=== PATIENT | male | born 1990 | race Caucasian/White ===

== ENCOUNTER → 2017-10-27 | Outpatient (REF) | payer BC ==
[2017-10-27 23:01] LABS: INFLUENZA A AMPLIFICATION NEGATIVE (NEGATIVE); INFLUENZA B AMPLIFICATION NEGATIVE (NEGATIVE); RSV AMPLIFICATION NEGATIVE (NEGATIVE)
== END ==
LOC: M LAB REF 09:42
DX: J11.1 Influenza due to unidentified influenza virus with other respiratory manifestations (principal)
CPT/HCPCS: 87631

== ENCOUNTER → 2018-11-21 | Outpatient (REF) | payer BC | LOC: M SFHCLERA 16:37 | PROVIDERS: ATTEND Physician Assistant | DX: J02.9 Acute pharyngitis, unspecified (principal) ==

== ENCOUNTER 2021-01-06 08:44 | Emergency (ER) | payer BC, OTHER, SELFPAY ==
[~2021-01-06] VITALS: Ht 175.3 cm; Wt 160.2 kg
[2021-01-06 09:29] LABS: BASO # 0.1 10^3/uL (0.0-0.2); BASO % 1.2 % (0.0-1.0); EOS # 0.3 10^3/uL (0.0-0.5); EOS % 3.3 % (0.0-3.0); HEMOGLOBIN 13.8 g/dl (13.5-17.5); LYMPH % 22.1 % (24.0-44.0); MEAN CORPUSCULAR HEMOGLOBIN 27.4 pg (27.0-33.0); MEAN CORPUSCULAR HGB CONC 32.9 g/dl (32.0-36.5); MEAN CORPUSCULAR VOLUME 83.3 fl (80.0-96.0); MONO % 10.8 % (2.0-8.0); NEUTROPHILS # 5.7 10^3/uL (1.5-8.5); NEUTROPHILS % 62.1 % (36.0-66.0); PLATELET COUNT, AUTOMATED 368 10^3/uL (150-450); RED BLOOD COUNT 5.04 10^6/uL (4.30-6.10); WHITE BLOOD COUNT 9.2 10^3/uL (4.0-10.0)
[2021-01-06 09:40] LABS: INR 0.92; PARTIAL THROMBOPLASTIN TIME 27.1 SECONDS (24.2-38.5); PROTHROMBIN TIME 12.6 SECONDS (12.5-14.3)
--- NOTE | 2021-01-06 09:42 | REP ---
INDICATION: CHEST PAIN. COMPARISON: 05/20/2011. TECHNIQUE: SINGLE PORTABLE AP VIEW OF THE CHEST WAS PERFORMED. FINDINGS: THERE IS NO ACUTE INFILTRATE OR PULMONARY EDEMA. LUNGS ARE CLEAR. HEART IS NOT SIGNIFICANTLY ENLARGED. MEDIASTINAL SILHOUETTE IS UNREMARKABLE. THE VISUALIZED OSSEOUS STRUCTURES ARE INTACT. IMPRESSION: NO ACUTE PULMONARY DISEASE. <Electronically signed by Wil Carter > 01/06/21 [id number]
[2021-01-06 10:05] LABS: ALBUMIN 3.6 GM/DL (3.2-5.2); ALT/SGPT 200 U/L (12-78); BILIRUBIN,DIRECT 0.2 MG/DL (0.0-0.2); BILIRUBIN,TOTAL 0.5 MG/DL (0.2-1.0); BLOOD UREA NITROGEN 17 MG/DL (7-18); CARBON DIOXIDE LEVEL 28 MEQ/L (21-32); CHLORIDE LEVEL 103 MEQ/L (98-107); CK-MB VALUE MASS 1.1 NG/ML (<3.6); CPK CREATINE PHOSPHOKINASE 172 U/L (39-308); GLOMERULAR FILTRATION RATE > 60.0 (>60); GLUCOSE, FASTING 96 MG/DL (70-100); LIPASE 196 U/L (73-393); MB/CK RELATIVE INDEX 0.64 (< OR =4); POTASSIUM SERUM 3.7 MEQ/L (3.5-5.1); SODIUM LEVEL 138 MEQ/L (136-145); TOTAL PROTEIN 7.3 GM/DL (6.4-8.2); TROPONIN I 0.09 NG/ML (< 0.10)
--- NOTE | 2021-01-06 10:57 | ECGEPIP ---
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
[2021-01-06] MEDS ORDERED: KETOROLAC 30 MG/ML 1ML VIAL IV ONE (11:00)
[2021-01-06] MEDS ORDERED: ISOVUE-370 76% 100ML VIAL As Ordered ONE (11:24)
[2021-01-06 12:18] LABS: CK-MB VALUE MASS 1.2 NG/ML (<3.6); MB/CK RELATIVE INDEX 0.69 (< OR =4); TROPONIN I 0.08 NG/ML (< 0.10)
--- NOTE | 2021-01-06 12:21 | REP ---
INDICATION: chest pain, elevated liver function tests. COMPARISON: None TECHNIQUE: 100 cc Isovue 370. FINDINGS: There is a common bile duct stent in place. There is slight intrahepatic ductal dilatation in the left lobe of the liver. The patient is status post cholecystectomy. There are no enhancing hepatic lesions. The spleen, pancreas, adrenal glands, and kidneys are within normal limits. The abdominal aorta and para-aortic regions are within normal limits. There is no free fluid or free air. There is no mass or adenopathy. The bowel loops and the mesenteries are within normal limits. The imaged osseous structures are within normal limits. IMPRESSION: There are some findings as described above. There is no evidence of acute disease. <Electronically signed by Kulwinder Beltre > 01/06/21 [id number]
--- NOTE | 2021-01-06 12:26 | REP ---
INDICATION: chest pain, elevated liver function tests. COMPARISON: None TECHNIQUE: CT angiogram, 100 cc Isovue 370. FINDINGS: There is excellent visualization of the pulmonary arterial vasculature. There are no focal filling defects present that would be considered consistent with acute pulmonary emboli. There are no pleural or pericardial effusions. There is no mediastinal or hilar adenopathy. Although not optimally visualized, the thoracic aorta is within normal limits. The imaged osseous structures are within normal limits. Evaluation of the lung pate shows no abnormal nodules, masses, or opacities. IMPRESSION: No acute disease. <Electronically signed by Kulwinder Beltre > 01/06/21 1994
[2021-01-06] MEDS ORDERED: KETO10TAB PO (12:54)
[2021-01-06 13:07] VITALS: BP 158/94
--- NOTE | 2021-01-07 02:39 | ECGEPIP ---
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
== END 2021-01-06 13:35 | disposition home or self-care (01) ==
LOC: M ED 08:44
DX: R07.89 Other chest pain (principal); R11.0 Nausea; Z87.891 Personal history of nicotine dependence
CPT/HCPCS: 71045; 71275; 74177; 80048; 80076; 82550; 82553; 83690; 84439; 84443; 84484; 85025; 85379; 85610; 85730; 93005; 93041; 96374; 99284; J1885; Q9967

== ENCOUNTER 2022-03-18 10:19 | Emergency (ER) | payer BC, SELFPAY ==
[~2022-03-18] VITALS: Ht 175.3 cm; Wt 187.6 kg
[~2022-03-18 10:19] MED LIST: KETO10TAB PO
[2022-03-18] MEDS ORDERED: CETI10CH PO (10:32)
[2022-03-18] MEDS ORDERED: HYDR-3490 PO (10:32)
[2022-03-18] MEDS ORDERED: LEXA1TAB PO (10:32)
[2022-03-18 11:44] LABS: BASO # 0.2 10^3/uL (0.0-0.2); BASO % 1.2 % (0.0-1.0); EOS # 0.8 10^3/uL (0.0-0.5); EOS % 6.3 % (0.0-3.0); HEMATOCRIT 40.6 % (42.0-52.0); HEMOGLOBIN 13.2 g/dl (13.5-17.5); LYMPH # 2.8 10^3/uL (1.5-5.0); LYMPH % 22.8 % (24.0-44.0); MEAN CORPUSCULAR HGB CONC 32.5 g/dl (32.0-36.5); MONO # 0.9 10^3/uL (0.0-0.8); MONO % 7.7 % (2.0-8.0); NEUTROPHILS # 7.4 10^3/uL (1.5-8.5); NEUTROPHILS % 61.2 % (36.0-66.0); PLATELET COUNT, AUTOMATED 389 10^3/uL (150-450); RED BLOOD COUNT 4.89 10^6/uL (4.30-6.10); WHITE BLOOD COUNT 12.1 10^3/uL (4.0-10.0)
[2022-03-18 11:59] LABS: INR 0.9; PROTHROMBIN TIME 12.6 SECONDS (12.7-14.5)
[2022-03-18 12:00] LABS: PARTIAL THROMBOPLASTIN TIME 30.3 SECONDS (25.9-37.0)
[2022-03-18] MEDS ORDERED: NS 1,000 ML IV ONE (12:00)
[2022-03-18 12:13] LABS: CK-MB VALUE MASS 1.2 NG/ML (<3.6); MB/CK RELATIVE INDEX 0.71 (< OR =4)
[2022-03-18 12:19] LABS: ALBUMIN 3.3 GM/DL (3.2-5.2); ALT/SGPT 156 U/L (12-78); BILIRUBIN,DIRECT 0.2 MG/DL (0.0-0.2); BILIRUBIN,TOTAL 0.4 MG/DL (0.2-1.0); BLOOD UREA NITROGEN 12 MG/DL (7-18); CALCIUM LEVEL 8.8 MG/DL (8.5-10.1); CARBON DIOXIDE LEVEL 31 MEQ/L (21-32); CHLORIDE LEVEL 102 MEQ/L (98-107); CREATININE FOR GFR 0.96 MG/DL (0.70-1.30); GLOMERULAR FILTRATION RATE > 60.0 (>60); GLUCOSE, FASTING 88 MG/DL (70-100); NT-PRO BNP 221 PG/ML (<125); POTASSIUM SERUM 3.8 MEQ/L (3.5-5.1); SODIUM LEVEL 138 MEQ/L (136-145); TOTAL PROTEIN 7.4 GM/DL (6.4-8.2)
[2022-03-18] MEDS ORDERED: ASPIRIN 81 MG CHEW TABLET PO ONE (12:25)
[2022-03-18] MEDS: NS 1,000 ML IV SCH ×3 (12:25→22:20)
[2022-03-18] MEDS ORDERED: ISOVUE-370 76% 100ML VIAL As Ordered ONE ×2 (12:46→13:26)
[2022-03-18] MEDS ORDERED: HEPARIN SOD (PORCINE) 5000UNITS/ML 1ML VIAL/SYRINGE IV ONE (14:25)
[2022-03-18] MEDS ORDERED: NITROGLYCERIN 2% OINT 1 GM *U/D* PKT TOP ONE (14:25)
[2022-03-18] MEDS ORDERED: HEPARIN DRIP 25,000 UNITS in IV 1 EA IV SCH ×2 (14:25→18:05)
[2022-03-18 15:42] LABS: AMPHETAMINES LEVEL URINE NEGATIVE (NEGATIVE); BARBITURATES URINE NEGATIVE (NEGATIVE); BENZODIAZEPINES URINE NEGATIVE (NEGATIVE); CANNABINOIDS URINE NEGATIVE (NEGATIVE); COCAINE METABOLITE URINE NEGATIVE (NEGATIVE); METHADONE URINE NEGATIVE (NEGATIVE); OPIATES URINE NEGATIVE (NEGATIVE); PHENCYCLIDINE URINE NEGATIVE (NEGATIVE)
[2022-03-18] MEDS: HEPARIN SOD (PORCINE) 5000UNITS/ML 1ML VIAL/SYRINGE IV PRN (21:59)
[2022-03-18] MEDS ORDERED: ONDANSETRON 4MG/2ML VIAL IV ONE (23:05)
[2022-03-18] MEDS ORDERED: ACETAMINOPHEN TAB 650MG DOSE (2X325MG) PO ONE (23:05)
[2022-03-19] MEDS ORDERED: NITROGLYCERIN 2% OINT 1 GM *U/D* PKT TOP ONE (00:50)
[2022-03-19 00:58] VITALS: BP 200/110
[2022-03-19] MEDS ORDERED: ACETAMINOPHEN TAB 650MG DOSE (2X325MG) PO ONE (03:30)
[2022-03-19] MEDS: HEPARIN SOD (PORCINE) 5000UNITS/ML 1ML VIAL/SYRINGE IV PRN (04:53)
[2022-03-19 06:18] VITALS: BP 180/100
== END 2022-03-19 06:23 | disposition short-term general hospital (02) ==
LOC: M ED 10:19
DX: I21.4 Non-ST elevation (NSTEMI) myocardial infarction (principal); R94.31 Abnormal electrocardiogram [ECG] [EKG]; I10 Essential (primary) hypertension; Z79.899 Other long term (current) drug therapy
CPT/HCPCS: 71045; 71275; 80048; 80076; 80307; 82550; 82553; 83880; 84443; 84484; 85025; 85610; 85730; 87486; 87581; 87633; 87798; 93005; 93041; 94760; 96360; 96361; 99285; J1644; Q9967

== ENCOUNTER → 2022-06-29 | Outpatient (CLI) | payer BC ==
[~2022-06-29] MED LIST changes: +CARV12.5 PO; +CETI10CH PO; +HYDR-3490 PO; +LEXA1TAB PO; +LISI20TA33 PO; +SPIR-10 PO; +VITMTA PO
== END ==
LOC: M LABSMTC 11:29
PROVIDERS: ATTEND Anesthesiology
DX: Z01.812 Encounter for preprocedural laboratory examination (principal); Z20.822 Contact with and (suspected) exposure to COVID-19

== ENCOUNTER 2022-07-03 13:13 | Day surgery (SDC) | payer BC ==
[~2022-07-03] VITALS: Ht 175.3 cm; Wt 169.4 kg
[~2022-07-03 13:13] MED LIST changes: +NS 1,000 ML IV ONE
[2022-07-03 13:40] VITALS: BP 173/103
[2022-07-03] MEDS ORDERED: LR 1,000 ML IV SCH (13:50)
== END 2022-07-03 13:46 | disposition home or self-care (01) ==
LOC: M SDC 13:13
PROVIDERS: ATTEND Internal Medicine Gastroenterology
DX: Z46.59 Encounter for fitting and adjustment of other gastrointestinal appliance and device (principal); Z53.8 Procedure and treatment not carried out for other reasons

== ENCOUNTER → 2022-07-26 | Outpatient (CLI) | payer BC ==
[~2022-07-26] MED LIST changes: -NS 1,000 ML IV ONE
== END ==
LOC: M LABSMTC 10:14
PROVIDERS: ATTEND Anesthesiology
DX: Z20.828 Contact with and (suspected) exposure to other viral communicable diseases (principal); Z11.59 Encounter for screening for other viral diseases

== ENCOUNTER 2022-08-14 10:51 | Day surgery (SDC) | payer BC ==
[~2022-08-14] VITALS: Ht 177.8 cm; Wt 172.7 kg
[~2022-08-14 10:51] MED LIST changes: +NS 1,000 ML IV ONE
[2022-08-14] MEDS ORDERED: fentaNYL 100 MCG/2 ML INJECTION As Ordered ONE (12:53)
[2022-08-14] MEDS ORDERED: MIDAZOLAM INJ 2MG/2ML VIAL (J2250 PER 1MG) As Ordered ONE ×2 (12:53→14:49)
[2022-08-14] MEDS ORDERED: propofoL 200 MG/20 ML VIAL As Ordered ONE ×3 (13:16→15:53)
[2022-08-14] MEDS ORDERED: LIDOCAINE 2% 100MG/5ML SDV (FOR ANES.) As Ordered ONE (13:17)
[2022-08-14] MEDS ORDERED: ROCURONIUM BROMIDE 50 MG/5 ML VIAL As Ordered ONE (13:18)
[2022-08-14] MEDS ORDERED: ISOVUE-300 61% 50ML VIAL As Ordered ONE (13:43)
[2022-08-14] MEDS ORDERED: SUGAMMADEX SODIUM 500 MG/5 ML VIAL (BRIDION) As Ordered ONE (15:33)
[2022-08-14] MEDS ORDERED: ONDANSETRON 4MG 2ML VIAL IV PRN (15:45)
[2022-08-14] MEDS ORDERED: HYDROMORPHONE HCL 0.5 MG/ 0.5 ML SYRINGE (J1170 PER 1) IV PRN (15:45)
[2022-08-14] MEDS ORDERED: oxyCODONE 5MG TAB PO PRN (15:45)
[2022-08-14] MEDS ORDERED: fentaNYL 100 MCG/2 ML INJECTION IV PRN (15:45)
[2022-08-14] MEDS ORDERED: LR 1,000 ML IV SCH (15:45)
[2022-08-14] MEDS: LABETALOL 100MG/20ML VIAL IV PRN ×5 (16:10→16:30)
[2022-08-14] MEDS: hydrALAZINE 20MG/ML 1ML VIAL (J0360 PER 20MG) IV PRN ×4 (16:41→17:00)
[2022-08-14 17:00] VITALS: BP 193/115
[2022-08-14] MEDS ORDERED: LABETALOL 100MG/20ML VIAL As Ordered ONE (17:03)
[2022-08-14 17:50] VITALS: BP 144/92
[2022-08-17] MEDS ORDERED: propofoL 200 MG/20 ML VIAL As Ordered ONE (14:31)
== END 2022-08-14 18:02 | disposition home or self-care (01) ==
LOC: M SDC 10:51
PROVIDERS: ATTEND Internal Medicine Gastroenterology
DX: Z46.59 Encounter for fitting and adjustment of other gastrointestinal appliance and device (principal); K83.8 Other specified diseases of biliary tract; Z96.89 Presence of other specified functional implants; Z79.899 Other long term (current) drug therapy; I25.2 Old myocardial infarction; I10 Essential (primary) hypertension; R60.0 Localized edema; F41.9 Anxiety disorder, unspecified; F32.A Depression, unspecified
CPT/HCPCS: 43275; 74330; 87635; 88305; A4649; J0360; J2250; J3010

== ENCOUNTER → 2023-04-01 | Outpatient (CLI) | payer BC ==
[~2023-04-01] MED LIST changes: -NS 1,000 ML IV ONE
== END ==
LOC: M WUC 12:51
PROVIDERS: ATTEND Student in an Organized Health Care Education/Training Program
DX: M25.562 Pain in left knee (principal)

== ENCOUNTER → 2023-08-07 | Outpatient (CLI) | payer BC | LOC: M RAD 09:19 | PROVIDERS: ATTEND Orthopaedic Surgery | DX: M25.562 Pain in left knee (principal) ==

== ENCOUNTER → 2024-04-06 | Outpatient (REF) | payer BC ==
[2024-04-06 19:28] LABS: BASO # 0.1 10^3/uL (0.0-0.2); BASO % 1.1 % (0.0-1.0); EOS # 0.9 10^3/uL (0.0-0.5); EOS % 8.3 % (0.0-3.0); HEMATOCRIT 36.3 % (42.0-52.0); HEMOGLOBIN 11.6 g/dl (13.5-17.5); LYMPH # 2.2 10^3/uL (1.5-5.0); LYMPH % 21.9 % (24.0-44.0); MEAN CORPUSCULAR HEMOGLOBIN 27.1 pg (27.0-33.0); MEAN CORPUSCULAR VOLUME 84.8 fl (80.0-96.0); MONO # 0.8 10^3/uL (0.0-0.8); MONO % 7.9 % (2.0-8.0); NEUTROPHILS # 6.2 10^3/uL (1.5-8.5); NEUTROPHILS % 60.3 % (36.0-66.0); PLATELET COUNT, AUTOMATED 376 10^3/uL (150-450); RED BLOOD COUNT 4.28 10^6/uL (4.30-6.10); WHITE BLOOD COUNT 10.2 10^3/uL (4.0-10.0)
[2024-04-06 19:47] LABS: HEMOGLOBIN A1c 5.3 % (4.0-6.0)
[2024-04-06 20:09] LABS: THYROID STIMULATING HORMONE 3.442 uIU/ML (0.55-4.78)
[2024-04-06 20:11] LABS: TOTAL 25(OH) VITAMIN D 13.8 NG/ML (20.0-100.0)
[2024-04-06 20:13] LABS: ALBUMIN 3.7 G/DL (3.2-5.2); ALKALINE PHOSPHATASE 108 U/L (46-116); ALT/SGPT 41 U/L (7.0-40); AST/SGOT 16 U/L (<34); BILIRUBIN,TOTAL 0.4 MG/DL (0.3-1.2); BLOOD UREA NITROGEN 19 MG/DL (9-23); CALCIUM LEVEL 9.2 MG/DL (8.5-10.1); CARBON DIOXIDE LEVEL 26 MMOL/L (20-31); CHLORIDE LEVEL 105 MMOL/L (98-107); CHOLESTEROL LEVEL 177 MG/DL (<200); CHOLESTEROL RISK RATIO 6.65 (<5); CREATININE FOR GFR 0.99 MG/DL (0.70-1.30); GLOMERULAR FILTRATION RATE > 60.0 (>60); GLUCOSE, FASTING 74 MG/DL (60-100); HDL CHOLESTEROL 26.6 MG/DL (>40); LDL CHOLESTEROL 123.4 MG/DL (<100); NON-HDL-C 150.4 MG/DL; POTASSIUM SERUM 4.5 MMOL/L (3.5-5.1); SODIUM LEVEL 140 MMOL/L (136-145); TOTAL PROTEIN 7.1 G/DL (5.7-8.2); TRIGLYCERIDES LEVEL 135 MG/DL (<150)
== END ==
LOC: M LAB REF 16:17
PROVIDERS: ATTEND Nurse Practitioner Family
DX: E66.3 Overweight (principal); E55.9 Vitamin D deficiency, unspecified; Z11.9 Encounter for screening for infectious and parasitic diseases, unspecified; R53.83 Other fatigue

== ENCOUNTER → 2025-07-31 | Outpatient (RCR) | LOC: M EMPSKH 07-08 09:40 | PROVIDERS: ATTEND Family Medicine | DX: Z20.828 Contact with and (suspected) exposure to other viral communicable diseases (principal) ==

== ENCOUNTER → 2025-09-03 | Outpatient (CLI) | payer BC ==
[~2025-09-03] MED LIST changes: +LABE20TAB
[2025-09-03 18:00] LABS: PLATELET COUNT, AUTOMATED 348 10^3/uL (150-450)
[2025-09-03 18:23] LABS: ALT/SGPT 29 U/L (7.0-40); AST/SGOT 17 U/L (<34); CALCIUM LEVEL 8.7 MG/DL (8.5-10.1); CARBON DIOXIDE LEVEL 28 MMOL/L (20-31); CHLORIDE LEVEL 103 MMOL/L (98-107); CREATININE FOR GFR 1.02 MG/DL (0.70-1.30); GLOMERULAR FILTRATION RATE > 90.0 (>60); POTASSIUM SERUM 3.9 MMOL/L (3.5-5.1); SODIUM LEVEL 139 MMOL/L (136-145)
== END ==
LOC: M LAB 17:33
PROVIDERS: ATTEND Nurse Practitioner Acute Care
DX: I42.9 Cardiomyopathy, unspecified (principal); I10 Essential (primary) hypertension

== ENCOUNTER 2025-09-12 16:12 | Emergency (ER) | payer BC ==
[~2025-09-12] VITALS: Ht 175.3 cm; Wt 181.5 kg
[~2025-09-12 16:12] MED LIST changes: -LABE20TAB
[2025-09-12 16:14] VITALS: TEMP 98.9
[2025-09-12] MEDS ORDERED: LABE20TAB (16:27)
[2025-09-12 17:01] VITALS: BP 197/119
[2025-09-12 17:27] VITALS: O2SAT 97
== END 2025-09-12 19:35 | disposition left against medical advice (07) ==
LOC: M ED 16:12
DX: Z53.21 Procedure and treatment not carried out due to patient leaving prior to being seen by health care provider (principal)